=== PATIENT | male | born 2000 | race Caucasian/White ===

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

== ENCOUNTER 2022-01-07 18:57 | Emergency (ER) | payer OTHER, SELFPAY ==
[2022-01-07 19:45] VITALS: BP 112/75; PULSE 119; RESP 20; TEMP 37.5; O2SAT 97
--- NOTE | 2022-01-07 19:48 | ED.URI ---
HPI - URI/Sore Throat General Chief Complaint: Upper Respiratory Infection Stated Complaint: fever,bodyache Time Seen by Provider: 01/07/22 19:50 Source: patient Mode of arrival: ambulatory Limitations: no limitations History of Present Illness HPI Narrative: Qamar is a 21-year-old male patient presenting to clinic today with complaints of fever, sore throat, body aches, and chills since 3:00 a.m. this morning. He denies any known exposure to anybody with COVID, flu, or strep. MD elicited complaint: sore throat and nasal congestion Related Data Home Medications Medication Instructions Recorded Confirmed mycophenolate mofetil 250 mg 750 mg PO BID 12/12/20 01/07/22 capsule Allergies Allergy/AdvReac Type Severity Reaction Status Date / Time ibuprofen AdvReac Intermediate Unknown Verified 01/07/22 19:23 Review of Systems Review of Systems: Pertinent positives per HPI. Patient denies any rash, headache, visual changes, dizziness, shortness of breath, chest pain, palpitations, nausea, vomiting, diarrhea, constipation, abdominal pain, or any urinary issues. [facility] Past Medical History Medical History Nephrotic syndrome Comments At the time of my signature, I reviewed and agree with the nursing past medical, surgical, social, and family history. There is no relevant family history pertinent to the patient complaint. Exam Narrative: General: Well-developed, well nourished, in no apparent distress Head: Normocephalic, atraumatic Eyes: Pupils equally round and reactive to light bilaterally, EOM intact, sclera and conjunctive clear, no discharge, lids normal Ears: TMs intact and clear, ear canals clear, no drainage, grossly hearing normal. Nose: Nares patent, clear nasal discharge, no inflammation, no sinus tenderness. Mouth: Oral pharynx without lesions or masses, good dentition, MMM. Oropharynx red Neck: Supple, trachea midline, no enlargement of anterior or posterior cervical nodes, no thyroid masses or goiter palpable. Cardio: Regular rate and rhythm, s1 and s2 normal, no murmur appreciated. Resp: Clear to auscultation bilaterally, no rhonchi, rales, wheezing or rubs Course Course Emergency Course: Portions of this record may have been created with voice recognition software. Level of Care: Express Care Visit Vital Signs Vital signs: Vital Signs Temperature 37.5 C 01/07/22 19:45 Pulse Rate 119 H 01/07/22 19:45 Respiratory Rate 20 01/07/22 19:45 Blood Pressure 112/75 01/07/22 19:45 Pulse Oximetry 97 01/07/22 19:45 Oxygen Delivery Room Air 01/07/22 19:45 Temperature 37.5 C 01/07/22 19:45 Pulse Rate 119 H 01/07/22 19:45 Respiratory Rate 20 01/07/22 19:45 Blood Pressure 112/75 01/07/22 19:45 Pulse Oximetry 97 01/07/22 19:45 Oxygen Delivery Room Air 01/07/22 19:45 Vital signs reviewed MDM - URI/Sore Throat MDM Narrative Medical decision making narrative: at the time of the patient is resting comfortably on the exam table. Influenza test was completed was positive. Prescription for Tamiflu as sent to pharmacy. Supportive measures were discussed with the patient he voiced understanding discharge instructions and agrees to treatment plan. Differential Diagnosis Differential diagnosis: Likely upper respiratory infection, otitis media, sinusitis, viral infection, bronchitis, influenza, pharyngitis and other ( COVID) Lab Data Labs: Influenza A Screen Positive Reference Range: Negative Influenza B Screen Negative Reference Range: Negative Discharge Plan Discharge Clinical Impression: Influenza A Patient Disposition: Home, Self-Care Condition: Stable Instructions: Antibiotic Form, Influenza (ED) Additional Instructions: TAKE PRESCRIPTION MEDICATIONS
== END 2022-01-07 19:55 | disposition home or self-care (01) ==
PROVIDERS: Emergency Provider Nurse Practitioner Family; PCP Pediatrics
DX: J10.1 Influenza due to other identified influenza virus with other respiratory manifestations (principal)
CPT/HCPCS: 87804; 99213; G0463

== ENCOUNTER 2022-01-11 10:11 | Emergency (ER) | payer OTHER, SELFPAY ==
[2022-01-11 10:22] VITALS: BP 121/88; PULSE 90; RESP 18; TEMP 37; O2SAT 99
--- NOTE | 2022-01-11 10:49 | ED.URI ---
HPI - URI/Sore Throat General Chief Complaint: Upper Respiratory Infection Stated Complaint: Congestion,Cough Time Seen by Provider: 01/11/22 10:37 Source: patient Mode of arrival: ambulatory Limitations: no limitations History of Present Illness HPI Narrative: patient presents today complaining of 5 day history you of cough, congestion, fever. He was seen at [facility] on 01/07/2022 and diagnosed with influenza A. no pharmacies in the area have any Tamiflu and he has been treating at home with Tylenol. He continues to have congestion and a productive cough. States his fever yesterday was 100.2. Denies shortness of breath. States he has a history of nephrotic syndrome and his face has slightly started to swell, as it does when he is ill. His mother sent him back to [facility] to possibly get antibiotics. Related Data Home Medications Medication Instructions Recorded Confirmed mycophenolate mofetil 250 mg 750 mg PO BID 12/12/20 01/11/22 capsule Allergies Allergy/AdvReac Type Severity Reaction Status Date / Time ibuprofen AdvReac Intermediate Unknown Verified 01/11/22 10:24 Review of Systems Review of Systems: CONSTITUTIONAL: Denies body aches, chills, or sweats.+ Fever EYES: Denies visual changes, redness, or discharge. ENT: Denies rhinorrhea, sore throat, or otalgia.+ congestion CARDIOVASCULAR: Denies chest pain, palpitations, or edema. RESPIRATORY: Denies dyspnea.+ cough, chest congestion GASTROINTESTINAL: Denies abdominal pain, nausea, vomiting, or diarrhea. GENITOURINARY: Denies dysuria or hematuria. SKIN: Denies rash, itching, or wounds. MUSCULOSKELETAL: Denies back pain, joint pain, or myalgia. NEUROLOGIC: Denies headache, numbness, tingling, or weakness. PSYCH: Denies depression or anxiety. [facility] Past Medical History Medical History Nephrotic syndrome Comments At time of signature, I have reviewed and agree with nursing past medical, surgical, social and family history unless otherwise noted. Please see nursing chart for further information. There is no relevant family history pertinent to the presenting complaint Exam Narrative: GENERAL: Well-appearing, well-nourished, and in no acute distress. HEAD: Normocephalic, atraumatic. EYES: EOMI. No redness or drainage. Conjunctivae normal. slight swelling below bilateral eyes. ENT: Mucous membranes pink and moist. Nares congested. No rhinorrhea. TMs normal bilaterally. Throat normal. Uvula midline. NECK: Normal AROM. Supple. No lymphadenopathy. CHEST: No respiratory distress. Clear to auscultation. HEART: Regular rate and rhythm. No murmur appreciated. Normal peripheral pulses. EXTREMITIES: Normal range of motion. No edema. SKIN: Warm, dry, no rash. Capillary refill normal. Normal skin turgor. NEURO: No focal deficits. Alert and oriented x3. Gait steady. PSYCH: Normal affect. No signs of depression or anxiety. Course Course Level of Care: Express Care Visit Vital Signs Vital signs: Vital Signs Temperature 98.6 F 01/11/22 10:22 Pulse Rate 90 01/11/22 10:22 Respiratory Rate 18 01/11/22 10:22 Blood Pressure 121/88 01/11/22 10:22 Pulse Oximetry 99 01/11/22 10:22 Oxygen Delivery Room Air 01/11/22 10:22 Temperature 98.6 F 01/11/22 10:22 Pulse Rate 90 01/11/22 10:22 Respiratory Rate 18 01/11/22 10:22 Blood Pressure 121/88 01/11/22 10:22 Pulse Oximetry 99 01/11/22 10:22 Oxygen Delivery Room Air 01/11/22 10:22 Reviewed. Pt has been instructed to follow up with his PCP regarding his elevated blood pressure today. MDM - URI/Sore Throat Differential Diagnosis Differential diagnosis: Likely upper respiratory infection, sinusitis, viral infection and other ( Pneumonia) Critical Care Time Critical Care Time Critical Care Time: No Discharge Plan Discharge Clinical Impression: Influenza A Patient Disposition: H
== END 2022-01-11 11:00 | disposition home or self-care (01) ==
PROVIDERS: Emergency Provider Nurse Practitioner
DX: J10.1 Influenza due to other identified influenza virus with other respiratory manifestations (principal)
CPT/HCPCS: 99213; G0463

== ENCOUNTER 2022-06-02 14:12 | Emergency (ER) | payer OTHER, SELFPAY ==
[2022-06-02 14:30] VITALS: BP 126/77; PULSE 96; RESP 18; TEMP 36.8; O2SAT 98
--- NOTE | 2022-06-02 14:52 | ED.URI ---
HPI - URI/Sore Throat General Chief Complaint: Upper Respiratory Infection Stated Complaint: Sore Throat,Body Aches Time Seen by Provider: 06/02/22 14:45 Source: patient and RN notes reviewed Mode of arrival: ambulatory Limitations: no limitations History of Present Illness HPI Narrative: Patient presents today complaining of sore throat, body aches, chills, congestion, cough, fever up to 101. He was taking Tylenol for his symptoms. States symptoms have completely resolved except for left-sided nasal congestion today. Patient has history of nephrotic syndrome and mother wanted him to come get checked for a sinus infection. Patient denies any swelling at this time. Related Data Home Medications Medication Instructions Recorded Confirmed mycophenolate mofetil 250 mg 750 mg PO BID 12/12/20 06/02/22 capsule Allergies Allergy/AdvReac Type Severity Reaction Status Date / Time ibuprofen AdvReac Intermediate Unknown Verified 01/14/22 10:51 Review of Systems Review of Systems: CONSTITUTIONAL: Denies body aches, fever, chills, or sweats. EYES: Denies visual changes, redness, or discharge. ENT: Denies rhinorrhea, sore throat, or otalgia.+ left-sided nasal congestion CARDIOVASCULAR: Denies chest pain, palpitations, or edema. RESPIRATORY: Denies cough or dyspnea. GASTROINTESTINAL: Denies abdominal pain, nausea, vomiting, or diarrhea. GENITOURINARY: Denies dysuria or hematuria. SKIN: Denies rash, itching, or wounds. MUSCULOSKELETAL: Denies back pain, joint pain, or myalgia. NEUROLOGIC: Denies headache, numbness, tingling, or weakness. PSYCH: Denies depression or anxiety. [facility] Past Medical History Medical History Nephrotic syndrome Comments At time of signature, I have reviewed and agree with nursing past medical, surgical, social and family history unless otherwise noted. Please see nursing chart for further information. There is no relevant family history pertinent to the presenting complaint Exam Narrative: GENERAL: Well-appearing, well-nourished, and in no acute distress. HEAD: Normocephalic, atraumatic. No edema of the face noted. EYES: EOMI. No redness or drainage. Conjunctivae normal. ENT: Mucous membranes pink and moist. Nares clear. Bilateral nasal turbinates have scant rhinorrhea. Left side is slightly edematous. TMs normal bilaterally. Throat normal. Uvula midline. NECK: Normal AROM. Supple. No lymphadenopathy. CHEST: No respiratory distress. Clear to auscultation. HEART: Regular rate and rhythm. No murmur appreciated. EXTREMITIES: Normal range of motion. No edema. SKIN: Warm, dry, no rash. Capillary refill normal. Normal skin turgor. NEURO: No focal deficits. Alert and oriented x3. Gait steady. PSYCH: Normal affect. No signs of depression or anxiety. Course Course Level of Care: Express Care Visit Vital Signs Vital signs: Vital Signs Temperature 98.3 F 06/02/22 14:30 Pulse Rate 96 06/02/22 14:30 Respiratory Rate 18 06/02/22 14:30 Blood Pressure 126/77 06/02/22 14:30 Pulse Oximetry 98 06/02/22 14:30 Oxygen Delivery Room Air 06/02/22 14:30 Temperature 98.3 F 06/02/22 14:30 Pulse Rate 96 06/02/22 14:30 Respiratory Rate 18 06/02/22 14:30 Blood Pressure 126/77 06/02/22 14:30 Pulse Oximetry 98 06/02/22 14:30 Oxygen Delivery Room Air 06/02/22 14:30 Reviewed. Pt has been instructed to follow up with his PCP regarding his elevated blood pressure today. MDM - URI/Sore Throat MDM Narrative Medical decision making narrative: Patient's symptoms consistent with viral infection. No prescription medications indicated at this time. Discussed Flonase for unilateral congestion. Anticipatory guidance given. Differential Diagnosis Differential diagnosis: Likely upper respiratory infection, sinusitis, viral infection and other (Strep throat) Lab Data Attestation: I reviewed the patient's lab r
== END 2022-06-02 15:02 | disposition home or self-care (01) ==
PROVIDERS: Emergency Provider Nurse Practitioner
DX: J06.9 Acute upper respiratory infection, unspecified (principal)
CPT/HCPCS: 87081; 87880; 99213; G0463

== ENCOUNTER 2022-12-19 15:11 | Outpatient (CLI) | payer OTHER, SELFPAY ==
[2022-12-19 16:04] LABS: Appearance Urine Clear (Clear); Bacteria Urine None Seen /hpf; Bilirubin Urine Negative (Negative); Blood Urine 2+ (Negative); Color Urine Yellow (Yellow); Glucose Urine UA Negative (Negative); Hyaline Casts Urine Present /lpf; Ketones Urine Negative (Negative); Leukocyte Esterase Ur Negative LEU/UL (NEGATIVE); Need Manual Microscopic Reviewed; Nitrate Urine Negative (Negative); Protein Urine 4+ mg/dL (Negative); Specific Grav Ur 1.025 (1.001-1.035); Squamous Epithelial Cell Urine None seen /hpf (Few); WBC Urine 0-5 /hpf (0-3)
[2022-12-19 16:06] LABS: Add Urine Microscopic? YES
== END 2022-12-19 15:12 | disposition home or self-care (01) ==
PROVIDERS: Visit Provider Pediatrics Pediatric Nephrology
DX: N04.0 Nephrotic syndrome with minor glomerular abnormality (principal)
CPT/HCPCS: 81001

== ENCOUNTER 2023-03-10 12:32 | Emergency (ER) | payer SELFPAY ==
--- NOTE | 2023-03-10 12:50 | ED.URI ---
HPI - URI/Sore Throat General Stated Complaint: congestion,body swelling Source: patient and RN notes reviewed Mode of arrival: ambulatory Limitations: no limitations History of Present Illness MD elicited complaint: cough and sore throat Related Data Home Medications Medication Instructions Recorded Confirmed mycophenolate mofetil 250 mg 750 mg PO BID 12/12/20 06/02/22 capsule Allergies Allergy/AdvReac Type Severity Reaction Status Date / Time ibuprofen AdvReac Intermediate Unknown Verified 01/14/22 10:51 Review of Systems Review of Systems: CONSTITUTIONAL: Denies malaise, chills, sweats, or fever. EYES: Denies visual changes, redness, or discharge. ENT: Reports rhinorrhea, congestion, sinus pain, otalgia and sore throat. CARDIOVASCULAR: Denies chest pain, palpitations, or edema. RESPIRATORY: Reports cough. Denies dyspnea. GASTROINTESTINAL: Denies abdominal pain, nausea, vomiting, diarrhea SKIN: Denies rash or itching. MUSCULOSKELETAL: Denies myalgia. NEUROLOGIC: Denies headache. All systems reviewed & are unremarkable except as noted in HPI and below PMFSH Past Medical History Medical History Nephrotic syndrome Comments At time of signature, agree with nursing past medical, surgical, social and family history. There is no relevant family history pertinent to the presenting complaint Exam Narrative: GENERAL: Well-appearing, well-nourished, and in no acute distress. HEAD: Normocephalic EYES: PERRLA, conjunctivae clear ENT: Nares clear, turbinates edematous and erythematous, clear discharge. Mucous membranes moist. TM pearly shane with dull light reflex bilaterally; no tragal tenderness. Oropharynx not erythematous without lesions. Tonsils not enlarged and without exudate, no drooling, no hoarseness, no trismus, uvula midline. NECK: Supple. No lymphadenopathy CHEST: Clear to auscultation, breath sounds equal. No wheezing, rhonchi, rales, or stridor. No respiratory distress, speaks in full sentences. HEART: Regular rate and rhythm. No murmur heard. SKIN: Warm, dry, no rash. NEURO: Alert and oriented x3. PSYCH: Normal mood and affect Course Course Emergency Course: Patient is aware of diagnosis, understands and agrees to treatment plan. Anticipatory guidance given. Patient agrees to follow-up as directed and is aware of reasons to seek care at the emergency department. Portions of this record may have been created with voice recognition software Level of Care: Express Care Visit Vital Signs Vital signs: Reviewed. MDM - URI/Sore Throat MDM Narrative Medical decision making narrative: Differential diagnosis considered: Duarte virus, strep pharyngitis, allergic rhinitis, upper respiratory tract infection, sinusitis, rhinosinusitis, nasopharyngitis. viral pharyngitis, otitis media, otitis externa, pneumonia, bronchitis, viral cough syndrome, viral syndrome, and influenza. Exam findings show no acute concerns or changes; patient is non-toxic appearing and is in no distress. Patient is appropriate for outpatient treatment and follow-up. Lab Data Attestation: I reviewed the patient's lab results. Critical Care Time Critical Care Time Critical Care Time: No Discharge Plan Discharge Prescriptions: No Action mycophenolate mofetil 250 mg capsule 750 mg PO BID Follow-up/Referrals: PHYSICIAN,PERSONNEL TRAINING OFFICER [Primary Care Provider] -
== END 2023-03-10 13:12 | disposition left against medical advice (07) ==
PROVIDERS: Emergency Provider Nurse Practitioner
DX: Z53.21 Procedure and treatment not carried out due to patient leaving prior to being seen by health care provider (principal)
CPT/HCPCS: 99199

== ENCOUNTER 2023-04-04 14:32 | Emergency (ER) | payer MEDICAID, SELFPAY ==
[2023-04-04 14:43] VITALS: BP 123/87; PULSE 84; RESP 16; TEMP 36.7; O2SAT 99
--- NOTE | 2023-04-04 14:47 | ED.DENTAL ---
HPI - Dental/Oral General Chief complaint: Dental/Oral Stated complaint: Tooth Pain Time Seen by Provider: 04/04/23 14:48 Source: patient Mode of arrival: ambulatory Limitations: no limitations History of Present Illness HPI Narrative: Patient is a 22-year-old male who presents with left lower dental pain for 5 days. Patient had chipped and decaying tooth months ago and has not been able to get into a dentist. Patient has been using hydrogen peroxide and warm water does swish and spit. Related Data Home Medications Medication Instructions Recorded Confirmed mycophenolate mofetil 250 mg 750 mg PO BID 12/12/20 04/04/23 capsule prednisone 20 mg tablet 60 mg PO DAILY 04/04/23 04/04/23 Allergies Allergy/AdvReac Type Severity Reaction Status Date / Time ibuprofen AdvReac Intermediate Unknown Verified 04/04/23 14:38 Review of Systems Review of Systems: All systems reviewed & are unremarkable except as noted in HPI and below Constitutional: Constitutional: Denies body ache(s), Denies fever(s), Denies headache(s), Denies malaise and Denies weakness Eyes: Eyes: Denies loss of vision ENT: Denies otalgia, Reports facial pain (jaw), Denies headache(s), Denies nasal discharge, Denies sinus pain and Denies sore throat Cardiovascular: Cardiovascular: Denies chest pain, Denies irregular heart rhythm and Denies dyspnea Respiratory: Respiratory: Denies dyspnea Gastrointestinal: Gastrointestinal: Denies abdominal pain, Denies melena, Denies hematochezia, Denies diarrhea, Denies nausea and Denies vomiting Musculoskeletal: Musculoskeletal: Denies back pain, Denies myalgias and Denies arthralgias Integumentary/Breasts: Skin/Breast: Denies pruritus and Denies rash Neurologic: Denies headache(s), Denies loss of vision and Denies weakness Psychiatric: Psychiatric: Reports no additional psychiatric complaints PMFSH Past Medical History Medical History Nephrotic syndrome Comments At time of signature, agree with nursing past medical, surgical, social and family history. There is no relevant family history pertinent to the presenting complaint. Exam Const: General: cooperative, healthy appearing, comfortable, no acute distress and well nourished Nutritional Appearance: well nourished Orientation/consciousness: patient oriented x3 Limitations: no limitations HENMT: Head: normal to inspection, normocephalic and atraumatic Ears: hearing grossly normal bilaterally, external ears normal, TM's normal bilaterally and mastoids normal bilaterally Face/Nose/Sinus: Normal external nose present, normal facial exam and face symmetric Face and sinus: normal facial exam and face symmetric Mouth: Yes Normal oral and palatal mucosa present, Yes lip normal, Yes tongue normal, Yes Normal salivary glands and ducts present and Yes moist mucous membranes Teeth and gingiva: caries and poor dentition Teeth image: 1. half missing, decaying tooth with gum inflammation Eyes: General: appearance normal, both eyes and all related structures Alignment and Position: alignment normal and position normal Periorbital: periorbital findings normal Eyelids: eyelids normal Pupils: Equal, round and reactive pupils present EOM: EOMs intact bilaterally Neck: Neck: normal visual inspection, full ROM, no lymphadenopathy and supple Chest: Chest palpation & inspection: normal inspection of the chest Resp: Effort & Inspection: normal respiratory effort and able to speak in complete sentences Auscultation: clear to auscultation bilaterally Cardio: Rate: regular rate Rhythm: regular rhythm Heart sounds: S1 normal heart sound present and S2 normal heart sound present GI: Inspection: normal to inspection Skin: General skin exam: normal color and no rashes or lesions noted Neuro: General: patient oriented x3 and moves all extremities Cranial nerves: Yes Equal, round and reactive pupils present S
== END 2023-04-04 15:08 | disposition home or self-care (01) ==
PROVIDERS: Emergency Provider Nurse Practitioner Family
DX: K04.7 Periapical abscess without sinus (principal); N04.9 Nephrotic syndrome with unspecified morphologic changes
CPT/HCPCS: 99213; G0463

== ENCOUNTER 2023-09-12 14:34 | Emergency (ER) | payer OTHER, SELFPAY ==
[2023-09-12 14:51] VITALS: BP 108/75; PULSE 86; RESP 14; TEMP 36.6; O2SAT 100
--- NOTE | 2023-09-12 15:34 | ED.URI ---
HPI - URI/Sore Throat General Chief Complaint: Upper Respiratory Infection Stated Complaint: sinus infection Time Seen by Provider: 09/12/23 15:23 Source: patient and RN notes reviewed Mode of arrival: ambulatory Limitations: no limitations History of Present Illness HPI Narrative: Patient presents today with a 4 day history of body aches, chills, headache, cough, congestion, sneezing, postnasal drip. Denies fever, chest pain, shortness of breath. Currently pain-free. He has been taking Tylenol with some relief. Related Data Home Medications Medication Instructions Recorded Confirmed mycophenolate mofetil 250 mg 750 mg PO BID 12/12/20 09/12/23 capsule Allergies Allergy/AdvReac Type Severity Reaction Status Date / Time ibuprofen AdvReac Intermediate Unknown Verified 09/12/23 15:08 Review of Systems Review of Systems: CONSTITUTIONAL: + body aches, chills EYES: Denies visual changes, redness, or discharge. ENT: Denies rhinorrhea, sore throat, or otalgia.+ congestion, sneezing, postnasal drip CARDIOVASCULAR: Denies chest pain, palpitations, or edema. RESPIRATORY: Denies dyspnea.+ cough GASTROINTESTINAL: Denies abdominal pain, nausea, vomiting, or diarrhea. GENITOURINARY: Denies dysuria or hematuria. SKIN: Denies rash, itching, or wounds. MUSCULOSKELETAL: Denies back pain, joint pain, or myalgia. NEUROLOGIC: Denies numbness, tingling, or weakness.+ headache PSYCH: Denies depression or anxiety. 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 Surgical History Surgical History History of ankle surgery Family History Family History Grandparent Heart disease Social History Social History Smoking status: Current every day smoker (vape) Alcohol intake: never Substance use: never Do You Feel Safe in your Home?: Yes Lack of Transportation: No Lack of Food: Never True Current Housing: I Have Housing Concerned About Future Housing: No Difficulty Paying Gas/Electric Bills: No Difficulty Paying for Meds: No Currently Unemployed: No Education: High School Diploma/GED Living arrangements: with roommate(s) Spiritual care concerns: No Agree to blood products: Yes Comments At time of signature, I have reviewed and agree with nursing past medical, surgical, social and family history unless otherwise noted. Please see nursing chart for further information. There is no relevant family history pertinent to the presenting complaint Exam Narrative: GENERAL: Well-appearing, well-nourished, and in no acute distress. HEAD: Normocephalic, atraumatic. EYES: EOMI. No redness or drainage. Conjunctivae normal. ENT: Mucous membranes pink and moist. Nares mildly congested. No rhinorrhea. TMs normal bilaterally. Throat normal. Uvula midline. NECK: Normal AROM. Supple. No lymphadenopathy. CHEST: No respiratory distress. Clear to auscultation. HEART: Regular rate and rhythm. No murmur appreciated. EXTREMITIES: Normal range of motion. No edema. SKIN: Warm, dry, no rash. Capillary refill normal. Normal skin turgor. NEURO: No focal deficits. Alert and oriented x3. Gait steady. PSYCH: Normal affect. No signs of depression or anxiety. Course Course Level of Care: Express Care Visit Vital Signs Vital signs: Vital Signs Temperature 98 F 09/12/23 14:51 Pulse Rate 86 09/12/23 14:51 Respiratory Rate 14 09/12/23 14:51 Blood Pressure 108/75 09/12/23 14:51 Pulse Oximetry 100 09/12/23 14:51 Oxygen Delivery Room Air 09/12/23 14:51 Temperature 98 F 09/12/23 14:51 Pulse Rate 86 09/12/23 14:51 Respiratory Rate 14 09/12/23 14:51 Blood Pressure 10
== END 2023-09-12 15:42 | disposition home or self-care (01) ==
PROVIDERS: Emergency Provider Nurse Practitioner
DX: J06.9 Acute upper respiratory infection, unspecified (principal); F17.290 Nicotine dependence, other tobacco product, uncomplicated
CPT/HCPCS: 99213; G0463